=== PATIENT | female | born 1980 | race Caucasian/White ===

== ENCOUNTER 2022-07-28 13:32 | Emergency (ER) | payer MEDICAID ==
[~2022-07-28] VITALS: Ht 172.7 cm; Wt 73.0 kg
[2022-07-28] MEDS ORDERED: ACETAMINOPHEN 325MG TABLET PO STA (17:24)
[2022-07-28 17:51] LABS: EOSINOPHILS % 0.8 % (0.0-5.0); MEAN CORPUSCULAR HEMOGLOBIN 29.4 pg (28.0-32.0); MEAN CORPUSCULAR VOLUME 88.6 fL (81.0-99.0); MONOCYTES % 5.5 % (2.0-8.0); NEUTROPHILS % 55.7 % (40.0-76.0); PLATELET 170 x1000/uL (130-400); RED CELL DISTRIBUTION WIDTH 13.3 % (11.6-14.6)
[2022-07-28 17:53] LABS: CHLORIDE 103 mEq/L (98-107)
[2022-07-28 17:54] LABS: CLARITY URINE CLEAR (CLEAR); COLOR URINE YELLOW (YELLOW); PROTEIN URINE NEGATIVE (NEGATIVE)
[2022-07-28 17:55] LABS: KETONES URINE NEGATIVE (NEGATIVE); LEUKOCYTE ESTERASE URINE 1+ (NEGATIVE); NITRITE URINE NEGATIVE (NEGATIVE); OCCULT BLOOD URINE 1+ (NEGATIVE); UROBILINOGEN URINE 0.2 E.U./dL (0.2-1.0)
[2022-07-28 17:56] LABS: INR 0.9; PROTHROMBIN TIME 10.1 sec (9.6-11.0)
[2022-07-28] MEDS ORDERED: KETOROLAC 60MG/2ML VIAL IM NR (18:00)
[2022-07-28] MEDS ORDERED: ONDANSETRON 4MG ODT PO NR (18:00)
[2022-07-28 18:02] LABS: ETHANOL BLOOD < 10 mg/dL
[2022-07-28 18:03] LABS: *AMPHETAMINES SCREEN URINE NEGATIVE (NEGATIVE); *BARBITURATES SCREEN URINE NEGATIVE (NEGATIVE); *BENZODIAZEPINES SCREEN URINE NEGATIVE (NEGATIVE); *COCAINE SCREEN URINE NEGATIVE (NEGATIVE); CANNABINOID URINE SCREEN NEGATIVE (NEGATIVE); METHADONE URINE SCREEN NEGATIVE (NEGATIVE); OPIATES URINE SCREEN NEGATIVE (NEGATIVE); PHENCYCLIDINE URINE SCREEN NEGATIVE (NEGATIVE)
[2022-07-28 18:12] LABS: HCG SCREEN NEGATIVE
[2022-07-28] MEDS ORDERED: IBUP-2029 MT (19:26)
[2022-07-28] MEDS ORDERED: ONDA4TAB50 MT (19:26)
[2022-07-28] MEDS ORDERED: CEPH500C2 MT (19:26)
[2022-07-28] MEDS ORDERED: CEPHALEXIN 250MG CAPSULE PO ONE (19:30)
[2022-07-28 19:47] VITALS: BP 122/78
== END 2022-07-28 19:51 | disposition home or self-care (01) ==
LOC: ER 13:32
DX: K52.9 Noninfective gastroenteritis and colitis, unspecified (principal); Z13.9 Encounter for screening, unspecified
CPT/HCPCS: 36415; 74176; 76830; 76856; 80053; 80305; 80320; 81003; 81025; 83690; 84703; 85025; 85610; 96372; 99284; J1885; Q0162; G0480